=== PATIENT | female | born 1985 | race Caucasian/White ===

== ENCOUNTER 2020-12-11 08:11 | Emergency (ER) | payer OTHER, SELFPAY ==
--- NOTE | ~2020-12-11 | XR_ITS ---
XR ankle LT min 3V 12/11/2020 08:57 INDICATION: Left ankle pain PROCEDURE: 4 views left ankle COMPARISON: No prior studies for comparison. FINDINGS: Fracture, dislocation or subluxation is not identified. The soft tissues appear within norm al limits. No foreign bodies are identified. IMPRESSION: 1: NO ACUTE BONE OR JOINT ABNORMALITY IDENTIFIED. Reviewed, dictated and finalized at location A.
[2020-12-11 08:37] VITALS: BP 149/104; PULSE 87; RESP 16; TEMP 36.3; O2SAT 100
[2020-12-11] MEDS: HYDROcodone/acetaminophen (*CRX) 5-325 MG TABLET 1 TAB PO (08:44)
--- NOTE | 2020-12-11 08:45 | ED.LOWEXIN ---
HPI - Extremity Injury (Lower) General Chief Complaint: Extremity Injury, Lower Stated Complaint: L ankle injury Time Seen by Provider: 12/11/20 08:28 Source: patient History of Present Illness HPI Narrative: Patient presents with left ankle pain. Patient ports she stepped off a curb into a ditch and had an inversion injury. Reports diffuse pain to her ankle and foot. Reports been unable to ambulate since the incident. Pain is achy, constant, radiates up her leg, worse with any sort of movement of her lower extremity. Shorts a difficult time moving her foot or toes due to pain. She she denied striking her head or any loss of consciousness. Reports paresthesias to her toes Related Data Home Medications Medication Instructions Recorded Confirmed No Home Medications 12/11/20 12/11/20 Allergies Allergy/AdvReac Type Severity Reaction Status Date / Time No Known Allergies Allergy Verified 12/11/20 08:40 Review of Systems Review of Systems: CONSTITUTIONAL: Denies fever, chills, or sweats. EYES: Denies visual changes, redness, or discharge. ENT: Denies rhinorrhea, congestion, sore throat, or otalgia. CARDIOVASCULAR: Denies chest pain, palpitations, or edema. RESPIRATORY: Denies cough or dyspnea. GASTROINTESTINAL: Denies abdominal pain, nausea, vomiting, or diarrhea. GENITOURINARY: Denies dysuria or hematuria. SKIN: Denies rash or itching. MUSCULOSKELETAL: Left ankle and foot pain NEUROLOGIC: Denies headache, numbness, dizziness, or weakness. PSYCHIATRIC: Denies anxiety or depression. All systems reviewed & are unremarkable except as noted in HPI and below PMFSH Social History Social History (Updated 12/11/20 @ 08:47 by Abelardo Cordon MD) Substance use: unknown Exam Narrative: GENERAL: Well-appearing, well-nourished, and in no acute distress. HEAD: Normocephalic, atraumatic. EYES: PERRLA and EOMI. ENT: Nares clear, no rhinorrhea or epistaxis. Mucous membranes moist. NECK: Supple. No masses. No JVD EXTREMITIES: Moderate edema to the left ankle with some ecchymoses. Edema most noted on the lateral malleolus there is diffuse tenderness to the ankle and foot most noted again around the lateral malleolus cap refill is less than 2 seconds sensation intact to light touch. SKIN: Warm, dry, no rash. NEURO: No focal deficits. Alert and oriented x3. PSYCH: Normal mood and affect. Course Reevaluation(s) Reevaluation #1: Patient continues to have left ankle pain. Plain films were unremarkable. Results reviewed with patient. Patient is comfortable with outpatient plan. RICE education given Date: 12/11/20 Time: 09:20 Vital Signs Vital signs: Vital Signs Temperature 36.3 C L 12/11/20 08:37 Pulse Rate 87 12/11/20 08:37 Respiratory Rate 16 12/11/20 08:37 Blood Pressure 149/104 H 12/11/20 08:37 Pulse Oximetry 100 12/11/20 08:37 Temperature 36.3 C L 12/11/20 08:37 Pulse Rate 87 12/11/20 08:37 Respiratory Rate 16 12/11/20 08:37 Blood Pressure 149/104 H 12/11/20 08:37 Pulse Oximetry 100 12/11/20 08:37 MDM - Extremity Injury (Lower) MDM Narrative Medical decision making narrative: H&P as above, vss, pt looks clinically well, exam swelling and diffuse pain to the ankle and joint however most noted on the lateral malleolus, imaging clinically unremarkable, additional labs/img considered, symptomatic relief available as needed, on reevaluation pt continues to looks clinically well. Suspect soft tissue injury, dns fracture, dislocation, major neurovascular compromise. Patient is appropriate for outpatient supportive therapies. Patient was encouraged to obtain a primary care doctor so she can be reevaluated if her symptoms are not improving. Return precautions given Discharge Plan Discharge Clinical Impression: Ankle sprain and strain Patient Disposition: Home, Self-Care Condition: Improved Instructions: Antibiotic Form, Ankle Sprain (ED), R.I.C.E. Treatment (ED) Kaylen
[2020-12-11] MEDS: KETOROLAC 30 MG/ML VIAL (*BKC) IM (09:38)
== END 2020-12-11 10:27 | disposition home or self-care (01) ==
PROVIDERS: Emergency Provider Emergency Medicine
DX: S93.402A Sprain of unspecified ligament of left ankle, initial encounter (principal); W10.1XXA Fall (on)(from) sidewalk curb, initial encounter
CPT/HCPCS: 73610; 96372; 99283; A9270; J1885